=== PATIENT | female | born 1980 | race Caucasian/White ===

== ENCOUNTER → 2022-08-19 | Outpatient (REF) | LOC: M PLAIMG 13:28 | PROVIDERS: ATTEND Internal Medicine | DX: J01.90 Acute sinusitis, unspecified (principal) ==

== ENCOUNTER → 2022-09-15 | Outpatient (REF) | LOC: M PLAIMG 11:55 | PROVIDERS: ATTEND Internal Medicine | DX: R52 Pain, unspecified (principal) ==